=== PATIENT | female | born 1965 | race Caucasian/White ===

== ENCOUNTER 2016-10-19 17:00 | Emergency (ER) | payer BC ==
[2016-10-19 15:51] LABS: BASOPHILS 0.4 %; BASOPHILS ABSOLUTE 0.02 10/3/uL (0.0-0.16); EOSINOPHILS 4.8 %; EOSINOPHILS ABSOLUTE 0.24 10/3/uL (0.0-0.53); ER CBC TAT 0 Hrs 03 Mins; LYMPHOCYTES 31.7 %; LYMPHOCYTES ABSOLUTE 1.57 10/3/uL (0.67-4.30); MEAN CORPUSCULAR HEMOGLOB 28.5 pg (26.0-34.0); MONOCYTES 13.5 %; MONOCYTES ABSOLUTE 0.67 10/3/uL (0.21-1.20); NEUTROPHILS 49.6 %; NEUTROPHILS ABSOLUTE 2.45 10/3/uL (2.02-8.40); PLATELET COUNT 156 10/3/uL (150-400); RBC DISTRIBUTION WIDTH 14.5 % (12.0-16.0)
[2016-10-19 15:56] LABS: HEMATOCRIT 30.6 % (36.0-48.0); HEMOGLOBIN 9.8 g/dL (12.0-16.0); MANUAL DIFF NO %; RED CELL COUNT 3.44 10/6/uL (4.0-5.6)
[2016-10-19 16:03] LABS: BUN (BLOOD UREA NITROGEN) 11 MG/DL (6-23); CALCIUM, SERUM 8.4 MG/DL (8.5-10.4); CHLORIDE, SERUM 111 MMOL/L (96-112); CO2 (CARBON DIOXIDE) 32 MMOL/L (24-34); CREATININE 0.48 MG/DL (0.55-1.02); GFR AFRICAN AMERICAN 133 ML/MIN (>=60); GFR NON AFRICAN AMERICAN 114 ML/MIN (>=60); INTERNATIONAL NORMAL RATI 1.1 UNITS (-); PARTIAL THROMBO TIME 41.1 SEC (22.5-37.2); POTASSIUM, SERUM 3.8 MMOL/L (3.5-5.3); PROTIME (NOT ORD) 14.1 SEC (12.0-14.5); SODIUM, SERUM 146 MMOL/L (135-148)
[2016-10-19 16:04] LABS: GLUCOSE, SERUM 89 MG/DL (60-99)
== END 2016-10-19 18:02 | disposition home or self-care (01) ==
LOC: ER 17:00
PROVIDERS: Nurse Practitioner
DX: M79.662 Pain in left lower leg (principal); I50.9 Heart failure, unspecified; G35 Multiple sclerosis; Z95.5 Presence of coronary angioplasty implant and graft; Z86.718 Personal history of other venous thrombosis and embolism; Z86.711 Personal history of pulmonary embolism; Z90.710 Acquired absence of both cervix and uterus; Z87.440 Personal history of urinary (tract) infections; Z88.0 Allergy status to penicillin; Z88.5 Allergy status to narcotic agent; Z88.8 Allergy status to other drugs, medicaments and biological substances
CPT/HCPCS: 80048; 85025; 85610; 85730; 93971; 96374; 99284; A9270-GY; J1170; J2550